=== PATIENT | female | born 1945 | race Caucasian/White ===

== ENCOUNTER → 2017-03-21 08:35 | Outpatient (CLI) | payer MEDICARE, OTHER ==
[2013-02-06 06:37] VITALS: BMI 28.2
[~2017-03-21 08:35] MED LIST: BAYER CHEWABLE81 MG PO; COREG 3.1253.125 MG PO; DEMEROL50 MG PO; LEVOTHROID75 MCG PO; MELATONIN 10 M1 EACH PO; NEURONTIN 300300 MG PO; NITROQUICK0.4 MG SL; PLAVIX75 MG PO; PRAVACHOL20 MG PO; PRILOSEC20 MG PO; PRINIVIL20 MG PO
[2017-03-21 08:58] LABS: BASOPHILS 0.2 % (0-2); EOSINOPHILS 3.9 % (0-7); HEMATOCRIT 40.5 % (36.0-48.0); HEMOGLOBIN 13.3 g/dL (12-16); IMMATURE GRANULOCYTES 0.3 % (0-5); LYMPHOCYTES 21.3 % (15-50); MCH 30.2 pg (26.0-34.0); MCHC 32.8 g/dL (31.0-37.0); MCV 91.8 fL (80.0-100.0); MEAN PLATELET VOLUME 10.8 fL (7.4-10.4); MONOCYTES 9.5 % (2-11); NEUTROPHILS 64.8 % (40-80); PLATELET COUNT 274 10x3/uL (130-400); RBC 4.41 10x6/uL (4.00-5.40); RDW 13.2 % (11.5-14.5); WBC 12.7 10x3/uL (4.8-10.8)
[2017-03-21 09:28] LABS: ALBUMIN 3.7 g/dL (3.4-5.0); ANION GAP 11.5 mmol/L (8-16); BILIRUBIN - TOTAL 0.57 mg/dL (0.2-1.3); CALCIUM 9.5 mg/dL (8.5-10.1); CARBON DIOXIDE 29.8 mmol/L (21.0-32.0); CREATININE - SERUM 1.3 mg/dL (0.6-1.3); LDL-HDL RATIO 1.4 ratio (1.5-3.5); POTASSIUM - SERUM 4.3 mmol/L (3.5-5.1); PROTEIN - SERUM 6.7 g/dL (6.4-8.2); THYROID STIMULATING HORMONE 0.63 uIU/mL (0.36-3.74)
== END | disposition home or self-care (01) ==
LOC: D.LAB 08:30
PROVIDERS: Family Medicine
DX: Z00.00 Encounter for general adult medical examination without abnormal findings (principal); E78.5 Hyperlipidemia, unspecified; E53.8 Deficiency of other specified B group vitamins; I10 Essential (primary) hypertension; E03.9 Hypothyroidism, unspecified

== ENCOUNTER → 2017-03-25 13:55 | Outpatient (CLI) | payer MEDICARE, OTHER ==
[2013-02-06 06:37] VITALS: BMI 28.2
== END | disposition home or self-care (01) ==
LOC: D.RAD 13:55
DX: R05 Cough (principal)

== ENCOUNTER → 2018-03-02 10:28 | Outpatient (CLI) | payer MEDICARE, OTHER ==
[2013-02-06 06:37] VITALS: BMI 28.2
== END | disposition home or self-care (01) ==
LOC: D.MRI 10:28
DX: M51.36 Other intervertebral disc degeneration, lumbar region (principal)

== ENCOUNTER 2019-02-11 12:37 | Outpatient (CLI) | payer MEDICARE, OTHER ==
[~2019-02-11] VITALS: Ht 167.6 cm; Wt 72.7 kg
[2019-02-11 13:42] VITALS: Ht 167.6 cm; Wt 72.7 kg
== END 2019-02-11 13:56 | disposition home or self-care (01) ==
LOC: D.OPS 12:37
PROVIDERS: ATTEND Emergency Medicine
DX: M81.0 Age-related osteoporosis without current pathological fracture (principal)

== ENCOUNTER → 2019-08-24 11:22 | Outpatient (CLI) | payer MEDICARE, OTHER ==
[2019-02-11 13:42] VITALS: BMI 25.8
== END | disposition home or self-care (01) ==
LOC: D.LAB 11:22
PROVIDERS: ATTEND Internal Medicine Pulmonary Disease
DX: Z11.59 Encounter for screening for other viral diseases (principal)

== ENCOUNTER → 2019-08-27 11:31 | Outpatient (CLI) | payer MEDICARE, OTHER ==
[2019-02-11 13:42] VITALS: BMI 25.8
[2019-08-27 12:08] LABS: HEMATOCRIT 35.7 % (36.0-48.0); HEMOGLOBIN 11.7 g/dL (12-16); LYMPHOCYTES 24.9 % (15-50); MCH 31.7 pg (26.0-34.0); MCHC 32.8 g/dL (31.0-37.0); MCV 96.7 fL (80.0-100.0); MEAN PLATELET VOLUME 9.1 fL (7.4-10.4); NEUTROPHILS 62.2 % (40-80); PLATELET COUNT 292 10x3/uL (130-400); RBC 3.69 10x6/uL (4.00-5.40); RDW 12.8 % (11.5-14.5); WBC 9.1 10x3/uL (4.8-10.8)
[2019-08-27 12:27] LABS: APTT 31.8 SECONDS (22.8-39.4); INR 0.92 (0.85-1.17); PROTIME 12.3 SECONDS (11.6-15.0)
[2019-08-31 03:07] LABS: IMMUNOGLOBULIN E 109 IU/mL (6-495)
== END | disposition home or self-care (01) ==
LOC: D.LAB 11:31 → D.RT 13:00 → D.LAB 13:00
PROVIDERS: ATTEND Internal Medicine Pulmonary Disease
DX: J44.9 Chronic obstructive pulmonary disease, unspecified (principal); R91.8 Other nonspecific abnormal finding of lung field

== ENCOUNTER 2019-09-29 13:00 | Outpatient (CLI) | payer MEDICARE, OTHER ==
[~2019-09-29] VITALS: Ht 167.6 cm; Wt 78.2 kg
[2019-09-29 13:30] VITALS: BP 155/88; Ht 167.6 cm; Wt 78.2 kg
== END 2019-09-29 13:37 | disposition home or self-care (01) ==
LOC: D.OPS 13:00
PROVIDERS: ATTEND Emergency Medicine
DX: M81.0 Age-related osteoporosis without current pathological fracture (principal)

== ENCOUNTER 2020-05-17 12:57 | Outpatient (CLI) | payer MEDICARE, OTHER ==
[~2020-05-17] VITALS: Ht 167.6 cm; Wt 78.6 kg
[~2020-05-17 12:57] MED LIST changes: +AVAPRO300 MG PO; +LIPITOR80 MG PO; +MOBIC7.5 MG PO; +PEPCID AC20 MG PO; +TYLENOL ARTHRI650 MG PO
[2020-05-17 13:23] VITALS: BP 127/61; Ht 167.6 cm; Wt 78.6 kg
== END 2020-05-17 13:40 | disposition home or self-care (01) ==
LOC: D.OPS 12:57
PROVIDERS: ATTEND Emergency Medicine
DX: M81.0 Age-related osteoporosis without current pathological fracture (principal)